=== PATIENT | female | born 1965 | race Two or more races ===

== ENCOUNTER 2021-12-22 06:21 | Day surgery (SDC) | payer OTHER ==
[~2021-12-22 06:21] MED LIST: AVAPRO300 MG PO; CARVEDILOL12.5 MG; COUMARIN1 GM PO; GLIMEPIRIDE4 MG; LOVENOX40 MG/0.4 SUBCUTANEO; METFORMIN HCL500 M3 PO; SYNTHROID50 MCG PO; TRADJENTA5 MG PO; TRICOR145 MG PO
== END 2021-12-22 16:55 | disposition home or self-care (01) ==
LOC: CIR.AMB 06:21
PROVIDERS: ATTEND Surgery
DX: C50.911 Malignant neoplasm of unspecified site of right female breast (principal)